=== PATIENT | female | born 1995 | race Caucasian/White ===

== ENCOUNTER 2022-02-15 15:14 | Emergency (ER) | payer OTHER ==
[2022-02-15 16:16] LABS: BASOPHIL 0.2 % (0-2); EOSINOPHIL 0.2 % (0-5); HCT 39.5 % (37.0-47.0); HGB 13.2 g/dl (12.5-16.0); LYMPHOCYTE 11.1 % (15-48); MCH 30.8 pg (25.0-31.0); MCHC 33.4 g/dL (32.0-36.0); MCV 92.1 fL (78.0-100.0); MONOCYTE 4.6 % (0-12); MPV 10.3 fL (6.0-9.5); NEUTROPHIL 83.6 % (41-80); NRBC 0; PLT 263 K/uL (150-400); RBC 4.29 M/uL (4.20-5.40); RDW 11.9 % (11.5-14.0); WBC 12.5 K/uL (4.0-10.5)
[2022-02-15 16:30] LABS: CREATININE 0.75 mg/dL (0.51-0.95); POTASSIUM 3.5 mmol/L (3.5-5.1)
[2022-02-15 16:34] LABS: BILIRUBIN NEGATIVE (NEGATIVE); BLOOD 3+ Ery/uL (NEGATIVE); CLARITY CLEAR (CLEAR); COLOR YELLOW (YELLOW); GLUCOSE (U) NORMAL (NORMAL); LEUKOCYTES NEGATIVE Leu/uL (NEGATIVE); NITRITE NEGATIVE (NEGATIVE); PROTEIN 1+ mg/dL (NEGATIVE); SPECIFIC GRAVITY >=1.030 (1.001-1.030); UROBILINOGEN 0.2 mg/dL (0.2-1.0)
[2022-02-15 16:55] LABS: BACTERIA 2+; MUCOUS TRACE; SQUAMOUS EPITHELIAL CELLS >50
[2022-02-15] MEDS ORDERED: FLOMAX 0.4 MG0.4 MG PO (18:04)
[2022-02-15] MEDS ORDERED: BACTRIM DS TAB1 EACH PO (18:04)
[2022-02-15] MEDS ORDERED: ONDANSETRON HCL4 MG PO (18:04)
[2022-02-15] MEDS ORDERED: PERCOCET 5-3251 EACH PO (18:04)
== END 2022-02-15 18:41 | disposition home or self-care (01) ==
LOC: FER 15:14
PROVIDERS: Nurse Practitioner Family
DX: N13.6 Pyonephrosis (principal)
CPT/HCPCS: 36415; 80048; 81001; 85025; J1170; J1885; J2405; J7030